=== PATIENT | male | born 1960 | race Caucasian/White ===

== ENCOUNTER → 2020-07-29 | Day surgery (SDC) | payer OTHER ==
[~2020-07-29] MED LIST: ACTOS15 MG PO; AMARYL4 MG PO; AMLODIPINE BESYL5 MG PO; ATORVASTATIN CA20 MG PO; CLOTRIMAZOLE-BE30 ML TP; EUTHYROX125 MCG PO; FLUTICASONE PRO15 G1 TP; JARDIANCE25 MG PO; KENALOG 0.5% CR15 GM EXT; LO-DOSE ASPIRIN81 MG PO; LOTRISONE CREAM15 GM TP; MULTI-VITAMIN1 EACH PO; NYAMYC60 GM TP; PEPCID20 MG PO; PERIDEX15 ML PO; PROTONIX 40 MG40 M1 PO; ROCALTROL0.25 MCG PO; SEROQUEL XR200 MG PO; TAMSULOSIN HCL0.4 MG PO; TRULICITY1.5 MG/0.5 SQ; VITAMIN E200 UNIT PO; ZIPRASIDONE HCL80 MG PO; [UNRECOGNIZED DRUG - OTHER] PO
== END | disposition home or self-care (01) ==
LOC: OR 06:17
DX: Z12.11 Encounter for screening for malignant neoplasm of colon (principal); D12.4 Benign neoplasm of descending colon; K63.5 Polyp of colon; K64.1 Second degree hemorrhoids; K20.0 Eosinophilic esophagitis; I10 Essential (primary) hypertension; E78.5 Hyperlipidemia, unspecified; F31.9 Bipolar disorder, unspecified; E11.43 Type 2 diabetes mellitus with diabetic autonomic (poly)neuropathy; K31.84 Gastroparesis; K21.9 Gastro-esophageal reflux disease without esophagitis; E66.9 Obesity, unspecified; Z68.33 Body mass index [BMI] 33.0-33.9, adult; Z86.010 Personal history of colon polyps; Z88.5 Allergy status to narcotic agent; Z91.040 Latex allergy status; Z79.82 Long term (current) use of aspirin; Z79.84 Long term (current) use of oral hypoglycemic drugs; Z79.899 Other long term (current) drug therapy
CPT/HCPCS: 82962; J2001; J2704; J7040

== ENCOUNTER → 2021-02-17 | Outpatient (CLI) | payer OTHER | LOC: US 12:47 | DX: N28.1 Cyst of kidney, acquired (principal) ==

== ENCOUNTER → 2021-06-11 | Outpatient (CLI) | payer OTHER | LOC: ECHO 06-05 11:15 | DX: R06.02 Shortness of breath (principal) | CPT/HCPCS: ECHO; 93306 ==